=== PATIENT | female | born 1950 | race Caucasian/White ===

== ENCOUNTER 2021-12-05 08:30 | Observation (INO) ==
--- NOTE | 2021-11-09 13:55 | PAT Medication Instructions ---
Medication Instructions Date of Service November 09, 2021 Home Medications levothyroxine 25 mcg tablet (Synthroid) 25 mcg PO HS ascorbic acid (vitamin C) 500 mg tablet (Vitamin C) 500 mg PO QPM aspirin 325 mg tablet 650 mg PO BID PRN ASK your prescriber and surgeon aspirin 325 mg tablet 650 mg PO BID PRN Take evening before surgery levothyroxine 25 mcg tablet (Synthroid) 25 mcg PO HS ascorbic acid (vitamin C) 500 mg tablet (Vitamin C) 500 mg PO QPM Other Notes If you have any questions please call us at [phone] or [phone] or [phone] or [phone]
--- NOTE | 2021-11-13 12:33 | Anesthesiology Consultation ---
Date of Service November 13, 2021 Assessment & Plan (1) Encounter for pre-operative examination: - awareness during JULITO, pt states was not in pain but could hear people talking/instruments. - COVID screening: Per assessment on 11/13/2021: Travel screen negative, no known COVID-19 positive contacts or current COVID-19 related symptoms in past 2 weeks. Patient vaccinated. Surgeon arranging preop COVID testing, scheduled 12/01/2021. Awaiting results. Chart Review Chart Review: Acceptable Risk for Surgery and Patient seen in Pre Admission Testing Teaching & Discussion Pre-Anesthesia Teaching/Discussion Notes: Instructed NPO after midnight before surgery, except medications with 15 cc of water. Medication instructions provided according to the PAT guidelines. History Surgery Operation Date: 12/05/21 08:50 Proposed Procedures p Right Total Knee Arthroplasty - Jordan Mckinney MD Height/Weight Height: 5 ft 4 in Weight: 95.9 kg Allergies Allergy/AdvReac Type Severity Reaction Status Date / Time No Known Allergies Allergy Verified 11/09/21 11:44 Medications Home Medications Medication Instructions Recorded Confirmed Last Taken levothyroxine 25 mcg tablet 25 mcg PO HS 10/13/21 11/09/21 Unknown (Synthroid) ascorbic acid (vitamin C) 500 mg 500 mg PO QPM 11/09/21 11/09/21 Unknown tablet (Vitamin C) aspirin 325 mg tablet 650 mg PO BID PRN 11/09/21 11/09/21 Unknown Past Medical History Medical History (Updated 11/15/21 @ 11:35 by Edith Dill PA-C) Elevated blood pressure reading occ - PCP monitoring per pt History of COVID-19 Early 07/2021 > symptoms at time: SOB, fever, fatigue, loss of taste/smell > resolved Hypothyroidism Right knee DJD Vertigo h/o- last episode 2 yrs ago Patient denies h/o stroke, seizures, heart attack, heart failure, DM, blood clots or blood transfusions. Exercise / Class Metabolic Activity II 4-5 Yardwork/Stairs/Walk up hill (denies CP or SOB with 1 FOS) Past Family History Family History (Updated 11/13/21 @ 12:57 by Edith Dill PA-C) Mother Coronary heart disease Other No known health problems Past Surgical History Surgical History (Updated 11/15/21 @ 11:36 by Edith Dill PA-C) History of cholecystectomy History of colonoscopy 2016 History of lumpectomy of right breast 2013-denies lymph node surgery or a limb restriction History of total hip arthroplasty LEFT-awareness during procedure reported by pt. Past Anesthesia History No Hx of Anesthesia Complications and Other (awareness during JULITO) History of PONV No Hx of PONV and No Hx of Motion Sickness Social History Smoking Status: Never smoker Do You Dip or Chew Tobacco: No Hx Alcohol Use: No Hx Substance Use: No Review of Systems Occasional snoring, denies witnessed apneas. Occ. reflux with certain foods. Patient denies chest pain, shortness of breath, dyspnea on exertion, fever, chills, cough, wheezing, or palpitations. Physical Exam Vital Signs Vitals BP 132/84 P 60 TEMP 98.7 SP02 99% on RA RESP 17 Physical Full cervical extension range of motion without pain TMD 3.5 finger breaths Mallampati Score 2 Dentition: full upper dentures; denies chipped, missing or loose teeth, caps/crowns, implants or bridges Lungs: normal respiratory effort. Clear throughout to auscultation, no adventitious breath sounds Cardiac: regular rate and rhythm, no murmurs noted Carotid arteries: negative bruit bilat Lab Results Anesthesia Preop Results Results Anesthesia Widget: WBC 4.68 K/uL (4.8-10.8) L 11/13/21 Hgb 11.8 g/dL (12.0-16.0) L 11/13/21 Hct 36.6 % (37-47) L 11/13/21 Plt 298 K/uL (130-400) 11/13/21 Na 138 mmol/L (136-145) 11/13/21 K 4.0 mmol/L (3.5-5.1) 11/13/21 Cl 105 mmol/L (98-107) 11/13/21 CO2 30 mmol/L (21-32) 11/13/21 BUN 10 mg/dl (6-23) 11/13/21 Creat 0.58 mg/dl (0.6-1.2) L 11/13/21 Glucose Level 113 mg/dl (70-99(Fasting)) H 11/13/21 PT 10.5 Seconds (9.0-12.0) 11/13/21 PTT 28.8 Seconds (21.0-31.0) 11/13/21 INR 1.0 (0.9-1.1) 11/13/21 Blood Type O Negative 11/13/21 Antibody Screen NEGATIVE 11/13/21 Testing Electrocardiogram Date: 11/13/21 Sinus bradycardia with sinus arrhythmia, rate 57 bpm Chest X-Ray Date: 11/13/21 The lungs are clear. Cardiac silhouette is normal in size. No pleural effusions. No pneumothorax. Prior cholecystectomy. IMPRESSION: No acute process.
--- NOTE | 2021-12-02 11:13 | History and Physical Report ---
DATE OF ADMISSION: 12/05/2021. CHIEF COMPLAINT: Right knee pain. HISTORY OF PRESENT ILLNESS: This is a 71-year-old female of [place] who presents for surgical sarah atment of her right knee: She has a 5+ year history of gradually increasing right knee pain and disc omfort that has gotten worse over time. She has been through extensive conservative treatment provid ed locally with steroid shots, which helped initially, but has become less successful over time. She had a gel shot, which did not help really at all. She takes aspirin with minimal relief. The more she is up and on it, the more it hurts. She does have to stand quite a bit in the day with her job a s a grocery packer at [employer] and having difficulty doing this. Of note, the patient has a history of left hip replacement done in [facility] in 2019. PAST MEDICAL HISTORY: Significant for: 1. Hypothyroidism. 2. Obesity, BMI of 36. PAST SURGICAL HISTORY: Includes, 1. Cholecystectomy. 2. Left hip replacement done 2019. 3. Lumpectomy. ALLERGIES: None. CURRENT MEDICATIONS: Synthroid. SOCIAL HISTORY: A 71-year-old female. She is . She lives by herself. She does not smoke. FAMILY HISTORY: Significant for heart disease. REVIEW OF SYSTEMS: Negative for diabetes. She has multiple joint aches and pains. No fevers. No h istory of weight loss. No DVT or PE. PHYSICAL EXAMINATION: GENERAL: Shows a pleasant middle-aged female looks to be in pretty good health. HEENT: Benign. NECK: Supple. No lymphadenopathy. LUNGS: Clear to auscultation. HEART: Regular rate and rhythm. ABDOMEN: Soft, nontender, nondistended. EXTREMITIES: Grossly neurovascularly intact except as follows. Examination of the right knee reveals the patient walks with a slight bit of a limp. She has fairly neutral slight varus alignment to her knee. She is tender over the medial joint line. Small knee ef fusion. Range of motion 5 degrees short of full extension to 120 degrees of flexion. There is no in stability. No pain with hip motion. X-RAYS: X-rays of the right knee were reviewed. She has moderate to advanced right knee degenerativ e joint disease. She has tricompartment disease. ASSESSMENT: A 71-year-old female status post left hip replacement in the past with moderate to advan jose right knee tricompartment degenerative joint disease. She has failed conservative treatment and would like to have her right knee replaced. PLAN: We will take her to the operating room and do a right total knee replacement. The risks and b enefits of this procedure were explained to the patient include but not limited to DVT, PE, , in fection, neurological injury, vascular injury, bleeding problem, pain, limited range of motion, stiff ness, failure to relieve her symptoms, incomplete relief of symptoms, etc. The patient understands a nd desires to proceed. Informed consent was obtained. As far as discharge plans, she lives by herself. She is going to need some help and will need to go to rehabilitation. After the hip surgery, she did stay with her daughter for a day or so and then we nt home. We will see how she is doing in the hospital. She will likely need a rehab stay for 10-12 days. Job ID: [id number]
[~2021-12-05 08:30] MED LIST: ACETAMINOPHEN 500 MG TAB PO SCH; BUPIVACAINE 0.5 % 5 MG/1 ML PF 10ML VIAL ONE; BUPIVACAINE LIPOSOME/PF 266 MG, BUPIVACAINE/EPINEPHRINE 50 ML, SODIUM CHLORIDE 0.9% 30 ... INFIL SCH; FAMOTIDINE 20 MG TAB PO SCH; LR 15ML/HR IV SCH; LR 60ML/HR IV SCH; METOCLOPRAMIDE HCL 10 MG TABLET PO SCH; ROPIVACAINE 0.5% 5 MG/ML 30 ML VIAL ONE; TRANEXAMIC ACID 1,000 MG **IV Pre-op IV SCH; ceFAZolin 2000MG 2,000 MG/15 ML SYR IV SCH
--- NOTE | 2021-12-05 09:08 | History & Physical Bridge Note ---
Date of Service December 05, 2021 History & Physical Bridge Note I have examined the patient, reviewed the History & Physical and in the interval since the performance of the History & Physical I have noted the following changes of clinical significance: no changes noted
[2021-12-05] MEDS ORDERED: MIDAZOLAM HCL 1 MG/ML 2ML VIAL ONE (09:31)
[2021-12-05] MEDS ORDERED: fentaNYL citrate 100 MCG/2 ML VIAL ONE (09:31)
[2021-12-05] MEDS ORDERED: ePHEDrine sulfate 50 MG/ML AMP IV PRN (10:07)
[2021-12-05] MEDS ORDERED: ATROPINE SULFATE 0.1 MG/ML 10ML SYR IV PRN (10:07)
[2021-12-05] MEDS ORDERED: ONDANSETRON INJ 2 MG/ML 2 ML VIAL IV PRN ×2 (10:07→13:56)
[2021-12-05] MEDS ORDERED: fentaNYL citrate 100 MCG/2 ML VIAL IV PRN (10:07)
[2021-12-05] MEDS ORDERED: BUPIVACAINE LIPOSOME 1.3% 266 MG/20 ML VIAL ONE (11:04)
[2021-12-05] MEDS ORDERED: SODIUM CHLORIDE 0.9% PF 50 ML VIAL ONE (11:04)
[2021-12-05] MEDS ORDERED: BUPIVACAINE/EPINEPHRINE 0.25% 1:200,000 30 ML VIAL ONE (11:04)
[2021-12-05] MEDS ORDERED: PROPOFOL IV EMULSION 10 MG/ML 100 ML VIAL IV ONE (11:54)
[2021-12-05] MEDS ORDERED: LIDOCAINE 2% 2 ML VIAL/AMP(20MG/ML) INFIL ONE (11:59)
[2021-12-05] MEDS ORDERED: TRANEXAMIC ACID 100 MG/ML 10 ML VIAL IV ONE (12:15)
--- NOTE | 2021-12-05 13:06 | Operative Report ---
PG Post Operative Report Pre & Post Diagnosis Operation Date: 12/05/21 10:40 Pre-Op Diagnosis: Right Knee Osteoarthritis Post-Op Diagnosis: Right Knee Osteoarthritis I identified the patient and participated in the time-out.: Yes Procedure Operation Date: 12/05/21 10:40 Actual Procedures p Right Total Knee Arthroplasty(Right) - Jordan Mckinney MD Surgeon Jordan Mckinney MD Truckman Marcus Pandey PA-C Estimated Blood Loss 50 Findings Consistent with Post-Op Diagnosis Operative findings real advanced right knee tricompartment DJD. She had extensive grade 4 changes in all 3 compartments of the knee. Diffuse osteopenia. Moderate-sized joint effusion. Slight valgus alignment to her knee. Specimens Right knee sent for pathology Anesthesia Type Spinal MAC Complications none Disposition Accompanied Patient To Recovery: No Indications Patient is a 71-year-old female with a long history of right knee pain discomfort describes gotten worse over time. Patient been through extensive conservative treatment treatment provided elsewhere which became less successful over time. She elected to total knee arthroplasty. Description of Procedure Operative implants consist of: 1 Biomet Vanguard size 67.5 right posterior stabilized femoral component. 2. Biomet size 71 tibial tray. 3. 10 mm posterior stabilized polyethylene insert. 4. 28 x 8 all polypatella. The patient was taken to the operating, identified, placed on the operating table supine position protectors were properly padded. IV antibiotics tried by anesthesia team. A spinal anesthetic and abductor canal block had provided in the holding area. Aaron catheter was placed in sterile fashion. Right thigh turn was then placed in the right lower extremities and prepped and draped in usual sterile fashion. The right leg was elevated exsanguinated with use of an Esmarch and the tourniquet was set at 300 mmHg. An anterior approach to the right knee was then performed to longitudinal incision centered over the patella. Sharp dissection was carried through subcutaneous tissue down the extensor mechanism. A medial parapatellar arthrotomy incision was made. Some subperiosteal dissection was carried out medially. The fat pad was resected from each patella tendon. Lateral patellofemoral ligament was released. Patella subluxated laterally and the knee was flexed. The osteophytes taken off distal femur. The ACL and PCL were then released from distal femur the tibia subluxated anteriorly. The external tibial alignment jig was then placed in the interface the tibia and adj usted 12 mm medially. Proximal tibial cut was made remove about 2 to 3 mm of bone from the medial side. The tibia was sized to a size 71. We tried to maximize coverage due to her osteopenia. Attention drawn the femur. The distal femur was entered with sharp drill bit intramedullary canal was suction. A right 5 degree valgus cutting guide was placed. Distal femoral cutting block was pinned in place. Distal femoral cut was made to take an additional 5 mm of bone off the distal femur as the initial cut really would not even cut below the notch area. The knee was brought out in extension. I did release him the IT band in order to equalize extension gap. Great care was taken to protect the peroneal nerve. The femur was then sized to a size 67.5. The AP cutting block was pinned parallel to the epicondylar axis which was 5 degrees of external rotation. The anterior cut, anterior chamfer, posterior cut, posterior chamfer cuts were made. The box cutting guide was placed in just slight lateral box cut was made. The knee was flexed. The remnants of the medial and lateral menisci were excised. The osteophytes taken off the posterior aspect the femur. A trial femoral component was placed. The tibial tray was pinned in maximum external rotation and the drill and stem punch were used to create defect in proximal tibia for the tibial tray. Knee was then trialed and the 10 mm insert fit most appropriately. Attention drawn the patella. The patella was cleaned of all soft tissues. Patella thickness measured 20 mm in thickness was cut down to 13. Was sized to a size 28 patella. The lug holes were drilled for the 28 patella. The lateral osteophyte is moved. Patella button was placed. Knee was taken through range of motion patella tracked nicely with no thumbs test. Attention drawn to placing permanent components. Nupathe all trial components were removed. A bone plug was placed in the distal femur limit blood loss. Double batch Palacos G cement was mixed. A Biomet Vanguard size 67.5 right posterior stabilized femoral component, size 71 tibial tray, a 10 mm posterior stabilized polyethylene insert, and a 31 x 8 all Paller patella were then cemented in place. The knee was brought out into full extension until cement hardened. Final cement check was then performed. The pericapsular tissues were injected with total 100 cc of combination of 20 cc of Exparel, 30 cc normal saline, 50 cc of quarter percent Marcaine with epinephrine. Patient did receive 1 g tranexamic acid. The tourniquet was then let down for final turn time of 51 minutes. Hemostasis assured with electrocautery. Extensor mechanism closed with combination 1 PDS suture #1 Vicryl suture in [id number] fashion with extensor mechanism checked found to be intact with subcutaneous tissue was then closed with 2 Dexon suture in a buried interrupted fashion. Skin was closed skin robson. Leg was then cleaned and dried and a sterile dressing was Xeroform, 4 x 4's, sterile cast padding, Job bandage were applied. Patient then transferred to the recovery room in stable condition. Patient tolerated procedure well and there were no complications. Marcus Pandey, my physician switchboard operator assistant, was present for the entire procedure. His assistance was essential and required for appropriate patient positioning, prepping and draping, surgical exposure, performing the technical details of the operation, placement the implants, closure of the wound, and placement of the sterile bandage. I attest to the content of the Intraoperative Record and any orders documented therein. Any exceptions are noted below.
--- NOTE | 2021-12-05 13:34 | XRay Report ---
RIGHT KNEE 2 VIEWS History: Right total knee arthroplasty. Degenerative arthritis. Postop. FINDINGS: The patient is status post a right total knee arthroplasty. The hardware is intact. No frac ture or dislocation. Skin robson are in place. IMPRESSION: Right total knee arthroplasty. No evidence for hardware complication. ACT 112: Negative or not required by law. Electronically signed by: Antonio Mesa M.D. 12/05/2021 1:33 PM
--- NOTE | 2021-12-05 13:49 | Anesthesiology Progress Note ---
Date of Service December 05, 2021 Anesthesia Post Procedure Vital Signs Vital Signs: Temp Pulse Pulse Resp BP Pulse Ox 12/05/21 13:43 97.5 F L 71 16 133/75 100 12/05/21 13:25 97.2 F L 68 16 119/75 100 12/05/21 13:15 68 16 125/68 100 12/05/21 13:05 73 16 126/68 100 12/05/21 12:57 96.8 F L 76 16 103/62 99 12/05/21 08:55 98.4 F 66 18 158/79 H 98 Pain Intensity Right Knee: Pain Intensity: 1 Transfer of Care Handoff Completed per policy Notes Mental Status: alert / awake / arousable and participated in evaluation Patient Amnestic to Procedure: Yes Nausea / Vomiting: adequately controlled Pain: adequately controlled Airway Patency, RR, SpO2: stable & adequate BP & HR: stable & adequate Hydration State: stable & adequate Neuraxial Anesthesia: was administered and sensory block is resolving Anesthetic Complications: no major complications apparent and Pt Satisfied with anesthetic care
[2021-12-05] MEDS ORDERED: HYDROmorphone INJ 0.5 MG/0.5 ML SYR IV PRN (13:56)
[2021-12-05] MEDS ORDERED: MAGNESIUM HYDROXIDE SUSP 30 ML UDC PO PRN (13:56)
[2021-12-05] MEDS ORDERED: oxyCODONE HCL IR 5 MG TAB (IMMEDIATE RELEASE) PO PRN (13:56)
[2021-12-05] MEDS ORDERED: bisacodyL 10 MG SUPP PR PRN (13:56)
[2021-12-05] MEDS ORDERED: METOCLOPRAMIDE HCL INJ 5 MG/ML 2 ML VIAL IV PRN (13:56)
[2021-12-05] MEDS ORDERED: NALOXONE HCL 0.4 MG/1 ML VIAL/CARP IV PRN (13:56)
[2021-12-05] MEDS ORDERED: ALUMINUM/MAGNESIUM SUSP 30 ML UDC PO PRN (13:56)
[2021-12-05] MEDS: SODIUM CHLORIDE 0.9% 1000ML 1,000 ML IV SCH (14:16)
[2021-12-05] MEDS: ACETAMINOPHEN 500 MG TAB PO SCH ×2 (14:55→21:11)
[2021-12-05] MEDS: KETOROLAC TROMETHAMINE 15 MG/ML VIAL IV SCH ×2 (14:55→21:10)
[2021-12-05] MEDS: ceFAZolin 2000MG 2,000 MG/15 ML SYR IV SCH (17:55)
[2021-12-05] MEDS ORDERED: TRANEXAMIC ACID / 0.7% NACL 1,000 MG/100 ML BAG IV SCH (19:00)
[2021-12-05] MEDS ORDERED: ASCORBIC ACID 500 MG TAB PO SCH (21:00)
[2021-12-05] MEDS ORDERED: SENNA 8.6 MG TAB PO SCH (21:00)
[2021-12-05] MEDS ORDERED: LEVOTHYROXINE SODIUM 25 MCG TABLET PO SCH (21:00)
[2021-12-05] MEDS: DOCUSATE SODIUM 100 MG CAP PO SCH (21:11)
[2021-12-05] MEDS: ASPIRIN 81 MG ECTAB PO SCH (21:23)
[2021-12-05] MEDS: TAPENTADOL HCL ER 50 MG TABCR PO SCH (21:23)
[2021-12-06] MEDS: SODIUM CHLORIDE 0.9% 1000ML 1,000 ML IV SCH (00:36)
[2021-12-06] MEDS: KETOROLAC TROMETHAMINE 15 MG/ML VIAL IV SCH ×3 (02:58→14:24)
[2021-12-06] MEDS: ceFAZolin 2000MG 2,000 MG/15 ML SYR IV SCH (02:58)
[2021-12-06] MEDS: ACETAMINOPHEN 500 MG TAB PO SCH ×2 (05:46→14:25)
[2021-12-06] MEDS ORDERED: dexAMETHasone 10 MG in SYRINGE 0 ML IV SCH (08:00)
[2021-12-06] MEDS ORDERED: DOCUSATE SODIUM/SENNA 50/8.6MG TAB PO SCH (09:00)
[2021-12-06] MEDS ORDERED: MULTIVITAMIN TAB PO SCH (09:00)
[2021-12-06] MEDS: TAPENTADOL HCL ER 50 MG TABCR PO SCH (09:14)
[2021-12-06] MEDS: ASPIRIN 81 MG ECTAB PO SCH (09:15)
[2021-12-06] MEDS: DOCUSATE SODIUM 100 MG CAP PO SCH (09:16)
[2021-12-06 09:42] LABS: Hematocrit (blood only) 34.1 % (37-47); Mean Corpuscular Hemoglobin 30.7 pg (25-34); Mean Corpuscular Hgb Conc 32.3 g/dL (32-36); Mean Corpuscular Volume 95.3 fL (80-100); Mean Platelet Volume 8.7 fL (7.4-10.4); Platelet Count 230 K/uL (130-400); RDW Coefficient of Variation 14.5 % (11.5-14.5); RDW Standard Deviation 50.5 fL (36.4-46.3); Red Blood Count 3.58 M/uL (4.2-5.4); White Blood Count 8.06 K/uL (4.8-10.8)
[2021-12-06 10:13] LABS: BUN Creatinine Ratio 15.5 (10-20); Calcium 8.6 mg/dl (8.5-10.1); Creatinine Clr Calc Pharmacy 86.9 ml/min; Est GFR (Non-African American) 86.3 ml/min; Potassium 3.8 mmol/L (3.5-5.1)
--- NOTE | 2021-12-06 13:16 | Progress Notes ---
DATE OF SERVICE: 12/06/2021 SUBJECTIVE: A 71-year-old female postop day 1 from right knee replacement. She is doing pretty well . Her therapy went well. She is hoping to go home. Pain is controlled. Quite a bit of pain with w alking, but she is very comfortable at rest. No chest pain or shortness of breath. Not feeling dizz y or lightheaded. OBJECTIVE: VITAL SIGNS: Temperature 36.6. Vital signs are stable. GENERAL: Shows a pleasant, elderly female. She is sitting up at her bedside chair, looks pretty com fortable. LUNGS: Clear to auscultation. HEART: Regular rate and rhythm. ABDOMEN: Soft, nontender, nondistended. EXTREMITIES: Grossly neurovascularly intact except as follows: Examination of the right leg reveals the dressing to be clean, dry and intact. She can dorsiflex and plantarflex her foot appropriately. She can do a straight leg raise with some effort. She is neurologically intact. LABORATORIES: Hemoglobin 11.0. Hematocrit 34.1. Electrolytes are stable. ASSESSMENT: A 71-year-old female postoperative day 1 from right knee replacement, doing reasonably w ell. Moderate amount of pain, which is not unexpected. Doing okay with pain medicines. She is neur ologically intact. Hoping to go home. PLAN: 1. DVT prophylaxis includes thigh-high TEDs, SCDs, and aspirin twice a day. 2. PT, OT, weightbear as tolerated. Right total knee protocol. 3. Pain control, doing okay with current pain regimen. 4. Disposition: Plan to discharge to home with some home health. She is going to go and stay with her son and [id number]. Job ID: [id number]
== END 2021-12-06 17:01 | disposition home health service (06) ==
LOC: ASU 08:30 → 3E 08:30